=== PATIENT | female | born 1950 | race Caucasian/White ===

== ENCOUNTER 2019-05-30 20:00 | Outpatient (CLI) | payer MEDICARE, BC, SELFPAY | END 2019-05-30 20:01 | disposition home or self-care (01) | LOC: SLEEP 05-31 09:31 | PROVIDERS: Family Provider Family Medicine; PCP Family Medicine; Visit Provider Family Medicine | DX: G47.33 Obstructive sleep apnea (adult) (pediatric) (principal); R09.02 Hypoxemia | CPT/HCPCS: 95810 ==

== ENCOUNTER 2019-06-25 20:00 | Outpatient (CLI) | payer MEDICARE, BC, SELFPAY | END 2019-06-25 20:01 | disposition home or self-care (01) | LOC: SLEEP 06-26 09:59 | PROVIDERS: Family Provider Family Medicine; PCP Family Medicine; Visit Provider Family Medicine | DX: G47.33 Obstructive sleep apnea (adult) (pediatric) (principal) | CPT/HCPCS: 95810; 95811 ==